=== PATIENT | female | born 1970 | race Caucasian/White ===

== ENCOUNTER 2018-02-19 13:49 | Emergency (ER) | payer MEDICAID ==
[2018-02-19] MEDS ORDERED: Diphtheria,Pertussis(Acell),Tetanus Vaccine 0.5 ML SDV IM ONE (14:01)
--- NOTE | 2018-02-19 14:07 | EDM.PDOC ---
ED HPI GENERAL MEDICAL PROBLEM - General Chief Complaint: General Stated Complaint: Stepped on nail Time Seen by Provider: 02/19/18 14:00 Source of Information: Reports: Patient History Limitations: Reports: No Limitations - History of Present Illness INITIAL COMMENTS - FREE TEXT/NARRATIVE: Patient is a 51-year-old female who is seen with chief complaint of puncture wound to her right foot secondary to stepping on a nail. This happened yesterday at 9:30 so approximately 18 hours ago she came in to be evaluated secondary to foot pain her last tetanus was 2012 Onset: Sudden Duration: Hour(s):, Getting Worse (`) Location: Reports: Lower Extremity, Right Quality: Reports: Ache, Pressure Severity: Moderate Improves with: Reports: None Worsens with: Reports: None - Related Data Allergies Allergy/AdvReac Type Severity Reaction Status Date / Time azithromycin [From Zithromax] Allergy Cannot Verified 03/11/17 15:32 Remember Home Meds: Home Meds Amoxicillin/Potassium Clav [Augmentin 875-125 Tablet] 1 each PO BID 7 Days #14 tablet 02/19/18 [Rx] Past Medical History Oncologic (Cancer) History: Reports: Hodgkin's Lymphoma ED ROS GENERAL - Review of Systems Review Of Systems: See Below Constitutional: Reports: No Symptoms HEENT: Reports: No Symptoms Respiratory: Reports: No Symptoms Cardiovascular: Reports: No Symptoms GI/Abdominal: Reports: No Symptoms : Reports: No Symptoms Musculoskeletal: Reports: Other (foot pain right foot) Skin: Reports: No Symptoms Neurological: Reports: No Symptoms Psychiatric: Reports: No Symptoms ED EXAM, GENERAL - Physical Exam Exam: See Below Exam Limited By: No Limitations General Appearance: Alert, WD/WN, No Apparent Distress Ears: Normal External Exam, Normal Canal, Hearing Grossly Normal, Normal TMs Nose: Normal Inspection, Normal Mucosa, No Blood Throat/Mouth: Normal Inspection, Normal Lips, Normal Teeth, Normal Gums, Normal Oropharynx, Normal Voice, No Airway Compromise Head: Atraumatic, Normocephalic Respiratory/Chest: No Respiratory Distress, Lungs Clear, Normal Breath Sounds, No Accessory Muscle Use, Chest Non-Tender Cardiovascular: Normal Peripheral Pulses, Regular Rate, Rhythm, No Edema, No Gallop, No JVD, No Murmur, No Rub GI/Abdominal: Normal Bowel Sounds, Soft, Non-Tender, No Organomegaly, No Distention, No Abnormal Bruit, No Mass (Female) Exam: Deferred Rectal (Female) Exam: Deferred Extremities: Other (right foot puncture wound from nail; no signs of infection) Neurological: Alert, Oriented, CN II-XII Intact, Normal Cognition, Normal Gait, Normal Reflexes, No Motor/Sensory Deficits Psychiatric: Normal Affect, Normal Mood Skin Exam: Other (puncture wound right foot ) Course - Vital Signs Last Recorded V/S: Last Vital Signs Temp 98.7 F 02/19/18 13:50 Pulse 100 02/19/18 13:50 Resp 16 02/19/18 13:50 BP 109/77 02/19/18 13:50 Pulse Ox 98 02/19/18 13:50 - Orders/Labs/Meds Meds: Medications Discontinued Medications Generic Name Dose Route Start Last Admin Trade Name Freq PRN Reason Stop Dose Admin Diphtheria/Tetanus/Acell Pertussis 0.5 ml 02/19/18 14:01 02/19/18 14:25 Adacel IM 02/19/18 14:02 0.5 ml .ONCE ONE Administration Departure - Departure Time of Disposition: 14:40 Disposition: Home, Self-Care 01 Clinical Impression: Puncture wound - Discharge Information *PRESCRIPTION DRUG MONITORING PROGRAM REVIEWED*: Not Applicable *COPY OF PRESCRIPTION DRUG MONITORING REPORT IN PATIENT DAVID: Not Applicable Prescriptions: Amoxicillin/Potassium Clav [Augmentin 875-125 Tablet] 1 each PO BID 7 Days #14 tablet Instructions: Amoxicillin; Clavulanic Acid tablets, Puncture Wound, VIS, Diphtheria, Tetanus, and Pertussis (DTaP) - CDC (10/07/2006) Referrals: Mary Smith PA-C [Primary Care Provider] - Forms: ED Department Discharge Care Plan Goals: Tetanus shot given to patient. Augmentin also prescribed 875mg for 10 days PO.
[2018-02-19 14:52] VITALS: BP 109/77
== END 2018-02-19 14:40 | disposition home or self-care (01) ==
LOC: LL.ED 13:49
DX: S91.331A Puncture wound without foreign body, right foot, initial encounter (principal); Z23 Encounter for immunization; Z88.1 Allergy status to other antibiotic agents; W22.8XXA Striking against or struck by other objects, initial encounter
CPT/HCPCS: 73620-LT; 90471; 90715; 99283